=== PATIENT | male | born 1940 | race Caucasian/White ===

== ENCOUNTER 2018-11-22 09:23 | Emergency (ER) | payer OTHER ==
--- NOTE | 2018-11-22 10:24 | ED Physician Documentation ---
Lower Extremity Problem - HISTORIAN Historian: patient, spouse - HPI Stated Complaint: right leg pain Chief Complaint: Lower Extremity Problem Additional Information: Patient presents to ED with a 2 day history of right leg swelling/redness/pain with associated chills. Patient is diabetic. Location of Injury: R leg Onset: days ago (2) Timing: still present Duration: constant Recent Injury: No Where: home Severity: moderate Quality: pain, swelling, tenderness Exacerbated By: walking Relieved By: rest Associated Symptoms: denies: chest pain, shortness of breath, rapid heart rate - ROS CONST: chills MS/SKIN/LYMPH: leg pain. denies: calf pain CVS/RESP: none GI/: none EYES/ENT: none NERUO/PSYCH: denies: headache - PAST HX Past History: none PE Risk Factors: none Other History: diabetes Type 2 Surgeries/Procedures: none Allergies/Adverse Reactions: Allergies Allergy/AdvReac Type Severity Reaction Status Date / Time No Known Drug Allergies Allergy Verified 11/22/18 09:39 Home Medications: Ambulatory Orders Medication Instructions Recorded Amoxicillin/Potassium Clav 1 each PO BID #20 tablet 11/22/18 [Augmentin 875-125 Tablet] Glimepiride [Amaryl] 4 mg PO DAILY 11/22/18 Tamsulosin HCl 0.4 mg PO DAILY 11/22/18 - SOCIAL HX Smoking History: non-smoker Alcohol Use: none Drug Use: none - FAMILY HX Family History: none - VITAL SIGNS Vital Signs: Vital Signs Temp Pulse Resp BP Pulse Ox 97.8 F 103 H 20 160/76 94 11/22/18 09:34 11/22/18 10:36 11/22/18 10:36 11/22/18 10:36 11/22/18 10:36 - REVIEWED ASSESSMENTS Nursing Assessment Reviewed: Yes Vitals Reviewed: Yes Progress - Progress Progress: 1134 Discussed possible admission, patient wants to go home. Patient was instructed to return to ER on Saturday if swelling does not improve, as he will need an US to rule out DVT. ED Results Lab/Radiology - Lab Results Lab Results: Lab Results 11/22/18 11/22/18 09:52 09:25 WBC 14.30 K/ul H K/ul (4.00-12.00) RBC 4.06 M/ul M/ul (3.90-5.20) Hgb 12.6 g/dL g/dL (12.0-18.0) Hct 37.9 % % (37.0-53.0) MCV 93.0 fl fl (80.0-100.0) MCH 31.0 pg pg (28.0-34.0) MCHC 33.2 g/dL g/dL (30.0-36.0) RDW 13.0 % % (11.3-14.3) Plt Count 141 K/mm3 K/mm3 (130-400) Seg Neutrophils % 81 % H % (39-79) Band Neutrophils % 7 % % (0-12) Lymphocytes % 5 % L % (16-50) Monocytes % 6 % % (0-11) Eosinophils % 1 % % (0-7) Basophils % 0 % % (0-2) Platelet Estimate Est. agrees w/plt ct RBC Morph Comment Normal (NORMAL) Sodium 132 mmol/L L mmol/L (136-145) Potassium 4.3 mmol/L mmol/L (3.5-5.1) Chloride 100 mmol/L mmol/L (98-107) Carbon Dioxide 21 mmol/L L mmol/L (22-30) BUN 32 mg/dL H mg/dL (9-20) Creatinine 1.78 mg/dL H mg/dL (0.66-1.25) Estimated Creat Clear 45 Est GFR ( Amer) 48 L (60 - ) Est GFR (Non-Af Amer) 39 L (60 - ) Glucose 294 mg/dL H mg/dL (74-106) Calcium 9.1 mg/dL mg/dL (8.4-10.2) Total Bilirubin 0.6 mg/dL mg/dL (0.2-1.3) AST 34 U/L U/L (15-46) ALT 19 U/L U/L (13-69) Alkaline Phosphatase 96 U/L U/L (38-126) Total Protein 7.0 g/dL g/dL (6.3-8.2) Albumin 3.8 g/dL g/dL (3.5-5.0) - Orders Orders: ED Orders Category Date Time Status Place IV Lock 1T Care 11/22/18 09:41 Active BLOOD CULTURE Stat Lab 11/22/18 09:52 Ordered CBC/PLATELET/DIFF Routine Lab 11/22/18 09:25 Completed CMP [CMP] Routine Lab 11/22/18 09:52 Completed Vancomycin HCl [Vancocin] 1.25 gm Med 11/22/18 10:21 Active 0.9 % Sodium Chloride [Normal Saline] 500 ml IV NOW cefTRIAXone SODIUM [Rocephin] 1 gm Med 11/22/18 10:21 Discontinued 0.9 % Sodium Chloride(Minibag+ [Normal Saline (Minibag+ )] 50 ml IV NOW Lower Extremity Problem - EXAM General Appearance: no distress Hips: bilateral hip: non-tender, normal inspection, normal range of motion Legs: right: swelling, other (redness on anterior leg to just below knee) Knees: bilateral: non-tender, normal inspection, normal range of motion Ankle: right: swelling Foot: right foot: swelling Neuro/Tendon: normal sensation, normal motor functions EENT: OSMIN RESPIRATORY: no resp distress, chest non-tender, breath sounds normal CVS: reg rate & rhythm, heart sounds normal VASCULAR: no vascular compromise, pulses full/equal NEURO/PSYCH: oriented X3, CN's nml as tested SKIN: warm/dry BACK: normal inspection Discharge Clincal Impression: Cellulitis of leg, right Prescriptions: Amoxicillin/Potassium Clav [Augmentin 875-125 Tablet] 1 each PO BID #20 tablet Referrals: Lilian Solano FNP [Primary Care Provider] - 2 Days Additional Instructions: 1. Take antibiotics until gone 2. Keep leg elevated and ambulate only when necessary 3. Follow up with PCP within 3 days 4. Return to the ER on Saturday if swelling has not improved. You will need to get an Ultrasound of the leg. Condition: Stable Disposition: 01 HOME, SELF-CARE Decision to Admit: NO Date of Decison to Admit: 11/22/18 Decision Time: 11:43
[2018-11-22 10:28] LABS: BASOPHILS % 0 % (0-2); EOSINOPHILS % 1 % (0-7); MONOCYTES % 6 % (0-11); PLT EST. EST. AGREES W/PLT CT; SEGMENTED NEUTROPHILS % 81 % (39-79)
[2018-11-22] MEDS: cefTRIAXone SODIUM 1 GM in 0.9 % SODIUM CHLORIDE(MINIBAG+ 50 ML IV ONE (10:35)
[2018-11-22] MEDS: VANCOMYCIN HCL 1.25 GM in 0.9 % SODIUM CHLORIDE 500 ML IV ONE (11:40)
[2018-11-22 13:53] VITALS: BP 152/76
== END 2018-11-22 13:45 | disposition home or self-care (01) ==
LOC: ED 09:23
DX: L03.115 Cellulitis of right lower limb (principal)
CPT/HCPCS: 36415; 80053; 85025; 87040; 96365; 96366; 96367; 99283; 99284; J0696; J3370; J7060; S1016

== ENCOUNTER 2018-12-09 08:47 | Outpatient (CLI) | payer OTHER ==
--- NOTE | 2018-12-09 10:26 | Diagnostic Imaging Report ---
OPAL FR[facility] [address] [facility] [address] [id number] Report Submission Date: Dec 09, 2018 10:11:40 AM CDT Patient Study Name: KATHERYN RANGEL Date: Dec 09, 2018 9:41:05 AM CDT Modality Type: US Gender: M Description: US EXTREMITY VEINS UNILAT : 40 Institution: [facility] Physician: OPAL FRANCE Examination: Ultrasound right vein History: Calf discomfort Findings: Sonographic evaluation of the right lower extremity venous system from the groin to the popliteal fossa inclusive. Normal compressibility. No luminal filling defect. Normal waveforms and response to augmentation. No popliteal region fluid collection. Impression: No evidence for deep venous thrombosis. Electronically signed on Dec 09, 2018 10:11:40 AM CDT by: William MILLER
--- NOTE | 2018-12-09 10:26 | Diagnostic Imaging Report ---
OP[facility] [place] [address] [facility] [address] [address] Report Submission Date: Dec 09, 2018 10:10:11 AM CDT Patient Study Name: KATHERYN RANGEL Date: Dec 09, 2018 8:56:22 AM CDT Modality Type: US Gender: M Description: US EXTREMITY VEINS UNILAT : 40 Institution: [facility] Physician: OPAL FRANCE Examination: Ultrasound left vein History: LEG PAIN AND SWELLING Findings: Sonographic evaluation of the left lower extremity venous system from the groin to the popliteal fossa inclusive. Normal compressibility. No luminal filling defect. Normal waveforms and response to augmentation. No popliteal region fluid collection. Impression: No evidence for deep venous thrombosis. Electronically signed on Dec 09, 2018 10:10:11 AM CDT by: William MILLER
== END 2018-12-09 08:50 ==
LOC: RAD 08:47
PROVIDERS: ATTEND Nurse Practitioner Family
DX: M79.605 Pain in left leg (principal); M79.89 Other specified soft tissue disorders; L03.115 Cellulitis of right lower limb
CPT/HCPCS: 93971